=== PATIENT | female | born 1990 | race Caucasian/White ===

== ENCOUNTER 2016-09-06 16:06 | Outpatient (CLI) | payer OTHER ==
[2015-06-10 14:32] VITALS: BP 116/74
== END 2016-09-06 16:10 ==
LOC: LABRHC 16:06
PROVIDERS: ATTEND Physician Assistant
DX: Z01.419 Encounter for gynecological examination (general) (routine) without abnormal findings (principal)
CPT/HCPCS: 87491; 87591; 88148; G0143